=== PATIENT | female | born 1955 | race Caucasian/White ===

== ENCOUNTER 2018-06-06 16:13 | Inpatient (IN) | payer OTHER ==
[~2018-06-06] VITALS: Ht 157.5 cm; Wt 101.4 kg
[2018-06-06 17:05] LABS: BASOPHILS 0.1 % (0-2); EOSINOPHILS 0.2 % (0-7); HEMATOCRIT 44.7 % (36.0-48.0); HEMOGLOBIN 13.6 g/dL (12-16); IMMATURE GRANULOCYTES 2.2 % (0-5); LYMPHOCYTES 10.3 % (15-50); MCH 29.4 pg (26.0-34.0); MCHC 30.4 g/dL (31.0-37.0); MCV 96.5 fL (80.0-100.0); MEAN PLATELET VOLUME 11.5 fL (7.4-10.4); MONOCYTES 8.4 % (2-11); NEUTROPHILS 78.8 % (40-80); PLATELET COUNT 159 10x3/uL (130-400); RBC 4.63 10x6/uL (4.00-5.40); WBC 12.1 10x3/uL (4.8-10.8)
[2018-06-06 17:25] LABS: ALBUMIN 3.2 g/dL (3.4-5.0); ALKALINE PHOSPHATASE 63 U/L (46-116); ALT (SGPT) 29 U/L (10-68); BILIRUBIN - TOTAL 0.42 mg/dL (0.2-1.3); CALC OSMOLALITY 289 mosm/kg (275-300); CALCIUM 9.1 mg/dL (8.5-10.1); CHLORIDE - SERUM 98 mmol/L (98-107); CREATININE - SERUM 0.8 mg/dL (0.6-1.3); GLUCOSE 167 mg/dL (74-106); POTASSIUM - SERUM 3.7 mmol/L (3.5-5.1); PROTEIN - SERUM 6.9 g/dL (6.4-8.2); SODIUM 142 mmol/L (136-145); UREA NITROGEN 20 mg/dL (7-18); eGFR NON AFRICAN AMERICAN 77 mL/min (90-120)
[2018-06-06 17:33] LABS: CARBON DIOXIDE 45.3 mmol/L (21.0-32.0)
--- NOTE | 2018-06-06 17:37 | NUR ---
CO2 45.3
--- NOTE | 2018-06-06 19:29 | NUR ---
REPORT CALLED TO CARMELO ANDRADE
--- NOTE | 2018-06-06 19:32 | MORECARE ---
CASE MANAGEMENT DISCHARGE SUMMARY PATIENT: HÉCTOR SANTIZO UNIT: [id number] ADM DATE: 06/06/18 AGE: 63 : 55 SEX: F ROOM/BED: D.2107 AUTHOR: ALEXANDRA YATES PHYSICIAN: REFERRING PHYSICIAN: BRAD ARMSTRONG MD DATE OF SERVICE: 06/06/18 Discharge Plan Patient Name: HÉCTOR SANTIZO Facility: [facility]:[place] : 1955 Planned Disposition: Anticipated Discharge Date: Discharge Date: Expected LOS: Initial Reviewer: [id number] Initial Review Date: 06/06/2018 Generated: 06/06/18 8:31 pm Patient Name: HÉCTOR SANTIZO Page [id number] at 1932 All edits/amendments must be made on the electronic document DICTATION DATE: 06/06/181930 SAW STRAIGHTENER: ANTHONY 06/06/181930 RPT#: [id number] DC DATE: STATUS: ADM IN [facility] [address] [place] [address] END OF REPORT
--- NOTE | 2018-06-06 20:34 | NUR ---
INTRODUCED SELF TO PATIENT, PATIENT DAUGHTER AT BEDSIDE ON THE PHONE. ASSISTED PATIENT TO BATHROOM. NO NEEDS AT THIS TIME.
[2018-06-07 00:17] VITALS: BP 131/81; BMI 41.1
--- NOTE | 2018-06-07 02:00 | NUR ---
MULTIPLE ATTEMPTS MADE TO PUT PT ON TRILOGY UNIT. PT HAS MANY REASON WHY SHE CANT PUT IT ON AT EACH ATTEMPT. HAS TO EAT, WAITING FOR NEW IV, NEEDS TO GO TO [facility]. PROMISES TO PUT ON BEFORE SLEEP.
[2018-06-07] MEDS ORDERED: EZFE 200200 MG PO (02:22)
[2018-06-07] MEDS ORDERED: KEPPRA500 MG PO (02:23)
[2018-06-07] MEDS ORDERED: LEVOFLOXACIN500 MG PO (02:23)
[2018-06-07] MEDS ORDERED: METOPROLOL TART50 MG PO (02:24)
[2018-06-07] MEDS ORDERED: GLUCOPHAGE500 MG PO (02:24)
[2018-06-07] MEDS ORDERED: MUCINEX DM ER1 EAC1 PO (02:25)
[2018-06-07] MEDS ORDERED: ELIQUIS5 MG PO (02:27)
[2018-06-07] MEDS ORDERED: ALBUTEROL SULF8.5 GM INH (02:27)
[2018-06-07] MEDS ORDERED: COLACE100 MG PO (02:28)
[2018-06-07] MEDS ORDERED: CARDIZEM CD240 MG PO (02:28)
[2018-06-07] MEDS ORDERED: FENOFIBRATE160 MG PO (02:28)
[2018-06-07] MEDS ORDERED: GLIPIZIDE10 MG PO (02:29)
[2018-06-07] MEDS ORDERED: NEURONTIN 300300 MG PO (02:29)
[2018-06-07] MEDS ORDERED: LASIX40 MG PO (02:29)
[2018-06-07] MEDS ORDERED: K-DUR20 MEQ PO (02:30)
[2018-06-07] MEDS ORDERED: OMEPRAZOLE20 M1 PO (02:30)
[2018-06-07] MEDS ORDERED: MIRAPEX0.25 MG PO (02:31)
[2018-06-07] MEDS ORDERED: STERAPRED DS 1210 MG PO (02:32)
--- NOTE | 2018-06-07 02:42 | NUR ---
PATIENT LEFT AC IV INFILTRATED, THIS NURSE ATTEMPTED 2X, CHARGE NURSE ATTEMPTED 2X, ICU NURSE ATTEMPTED 2X. CALLED ED, AWAITING FOR ED NURSE TO ATTEMPT IV START.
[2018-06-07 04:54] LABS: BASOPHILS 0.1 % (0-2); EOSINOPHILS 0.9 % (0-7); HEMATOCRIT 44.4 % (36.0-48.0); HEMOGLOBIN 13.4 g/dL (12-16); IMMATURE GRANULOCYTES 2.2 % (0-5); LYMPHOCYTES 21.9 % (15-50); MCH 29.3 pg (26.0-34.0); MCHC 30.2 g/dL (31.0-37.0); MCV 96.9 fL (80.0-100.0); MEAN PLATELET VOLUME 10.8 fL (7.4-10.4); MONOCYTES 9.9 % (2-11); PLATELET COUNT 147 10x3/uL (130-400); RBC 4.58 10x6/uL (4.00-5.40); WBC 10.9 10x3/uL (4.8-10.8)
[2018-06-07 05:15] LABS: ALBUMIN 3.1 g/dL (3.4-5.0); ALKALINE PHOSPHATASE 58 U/L (46-116); ALT (SGPT) 27 U/L (10-68); BILIRUBIN - TOTAL 0.43 mg/dL (0.2-1.3); CALCIUM 9.1 mg/dL (8.5-10.1); CHLORIDE - SERUM 98 mmol/L (98-107); CREATININE - SERUM 0.7 mg/dL (0.6-1.3); MAGNESIUM - SERUM 1.9 mg/dL (1.8-2.4); POTASSIUM - SERUM 3.5 mmol/L (3.5-5.1); PROTEIN - SERUM 6.7 g/dL (6.4-8.2); SODIUM 142 mmol/L (136-145); UREA NITROGEN 17 mg/dL (7-18); eGFR NON AFRICAN AMERICAN 90 mL/min (90-120)
[2018-06-07 05:19] LABS: CALC OSMOLALITY 285 mosm/kg (275-300); CARBON DIOXIDE 45.8 mmol/L (21.0-32.0); GLUCOSE 116 mg/dL (74-106)
--- NOTE | 2018-06-07 08:01 | NUR ---
RESUMING PT CARE, PT SITTING UP IN BED ALERT AND ORIENTED X3, CALL LIGHT IN REACH, WILL CONTINUE TO MONITOR AND FOLLOW PLAN OF CARE. PT DOES NOT HAVE AN IV AT THIS TIME, FOOT PRESS OPERATOR REPORTS THAT THEY TRIED SEVERAL TIMES TO START A NEW IV. WILL CONTACT VENOUS ACCESS NURSE TO ATTEMPT.
--- NOTE | 2018-06-07 09:49 | NUR ---
URINE SENT TO LAB ORDERED.
[2018-06-07 10:47] VITALS: BMI 41.1
[2018-06-07 12:24] VITALS: Ht 157.5 cm; Wt 101.4 kg
--- NOTE | 2018-06-07 15:14 | NUR ---
I have reviewed this patient and I concur with the Shift Assessment completed by the Licensed Practical Nurse today this shift.
--- NOTE | 2018-06-07 19:50 | NUR ---
RESUMING PT CARE. PT IS ALERT LAYING IN BED. NO C/O VOCIED. NO S/S OF DISTRESS. PT HAS A IV IN THE RIGHT WRIST AND IS ON 2 LITERS OF OXYGEN. BED IN LOW POSITION WITH CALL LIGHT IN REACH. WILL CONTINUE TO MONITOR PT AND FOLLOW PLAN OF CARE.
[2018-06-08 03:45] LABS: BASOPHILS 0.1 % (0-2); EOSINOPHILS 1.4 % (0-7); HEMATOCRIT 44.9 % (36.0-48.0); HEMOGLOBIN 13.6 g/dL (12-16); LYMPHOCYTES 17.2 % (15-50); MCH 29.1 pg (26.0-34.0); MCHC 30.3 g/dL (31.0-37.0); MCV 96.1 fL (80.0-100.0); MEAN PLATELET VOLUME 10.9 fL (7.4-10.4); NEUTROPHILS 71.3 % (40-80); PLATELET COUNT 139 10x3/uL (130-400); RBC 4.67 10x6/uL (4.00-5.40); RDW 15.3 % (11.5-14.5); WBC 13.1 10x3/uL (4.8-10.8)
[2018-06-08 03:59] LABS: ALBUMIN 2.9 g/dL (3.4-5.0); ALKALINE PHOSPHATASE 59 U/L (46-116); ALT (SGPT) 24 U/L (10-68); BILIRUBIN - TOTAL 0.51 mg/dL (0.2-1.3); CALC OSMOLALITY 283 mosm/kg (275-300); CARBON DIOXIDE 39.9 mmol/L (21.0-32.0); CHLORIDE - SERUM 99 mmol/L (98-107); CREATININE - SERUM 0.7 mg/dL (0.6-1.3); GLUCOSE 150 mg/dL (74-106); MAGNESIUM - SERUM 1.9 mg/dL (1.8-2.4); PROTEIN - SERUM 6.5 g/dL (6.4-8.2); SODIUM 141 mmol/L (136-145); eGFR NON AFRICAN AMERICAN 90 mL/min (90-120)
[2018-06-08 04:00] LABS: UREA NITROGEN 12 mg/dL (7-18)
--- NOTE | 2018-06-08 04:14 | NUR ---
I have reviewed this patient and I concur with the Shift Assessment completed by the Licensed Practical Nurse today this shift.
--- NOTE | 2018-06-08 05:06 | NUR ---
PT ALERT SITTING ON THE SIDE OF BED DRINKING COFFEE. NO C/O VOICED. NO S/S OF DISTRESS. BED IN LOW POSITION WITH CALL LIGHT IN REACH. WILL CONTINUE TO MONITOR PT AND FOLLOW PLAN OF CARE.
--- NOTE | 2018-06-08 07:20 | NUR ---
RESUMING PT CARE, PT IS SITTING UP IN BED, ALERT AND ORIENTED X3. CALL LIGHT IN REACH, WILL CONTINUE TO MONITOR AND FOLLOW PLAN OF CARE.
--- NOTE | 2018-06-08 11:47 | NUR ---
I have reviewed this patient and I concur with the Shift Assessment completed by the Licensed Practical Nurse today this shift.
--- NOTE | 2018-06-08 12:14 | MORECARE ---
CASE MANAGEMENT DISCHARGE SUMMARY PATIENT: HÉCTOR SANTIZO UNIT: [id number] ADM DATE: 06/06/18 AGE: 63 : 55 SEX: F ROOM/BED: D.2107 AUTHOR: ALEXANDRA YATES PHYSICIAN: REFERRING PHYSICIAN: BRAD ARMSTRONG MD DATE OF SERVICE: 06/08/18 Discharge Plan Patient Name: HÉCTOR SANTIZO [facility] : 1955 Planned Disposition: Home Anticipated Discharge Date: 06/09/18 Discharge Date: Expected LOS: 3 Initial Reviewer: [id number] Initial Review Date: 06/06/2018 Generated: 06/08/18 1:14 pm External Providers External Provider: Josephine Next Contact Date: 06/08/2018 Service Request Date: Service Type: Resolution: Reviewer: Comments: Coverage Notice Reviewer: [id number] Rodriguez Notice Issued Date-Time: 06/08/2018 10:50 Notice Type: IM Discharge Notice Notice Delivered To: Patient Relationship to Patient: Fisher Trap Name: Delivery Method: HAND - Hand Delivered Evie Days: Prior Verbal Notification: Recipient Understood Notice: Yes Recipient Signature: Yes Med Rec Note Co-signed by Attending: Coverage Notice Comment: Reviewer: JEREMIAH Rodriguez Notice Issued Date-Time: 06/08/2018 10:50 Notice Type: Patient Choice Letter Notice Delivered To: Patient Relationship to Patient: Fisher Trap Name: Delivery Method: HAND - Hand Delivered Evie Days: Prior Verbal Notification: Recipient Understood Notice: Yes Recipient Signature: Yes Med Rec Note Co-signed by Attending: Coverage Notice Comment: SAJAN Guerrero DP export: 06/06/18 6:31 p Patient Name: HÉCTOR SANTIZO Page 18103 at 1214 All edits/amendments must be made on the electronic document DICTATION DATE: 06/08/18 1213 HEARING OFFICER: ANTHONY 06/08/183 RPT#: [id number] DC DATE: STATUS: ADM IN [address] [place] [address] END OF REPORT
--- NOTE | 2018-06-08 12:23 | MORECARE ---
CASE MANAGEMENT DISCHARGE SUMMARY PATIENT: HÉCTOR SANTIZO UNIT: [id number] ADM DATE: 06/06/18 AGE: 63 : 55 SEX: F ROOM/BED: D.2107 AUTHOR: TRUDYDOC PHYSICIAN: REFERRING PHYSICIAN: BRAD ARMSTRONG MD DATE OF SERVICE: 06/08/18 Discharge Plan Patient Name: HÉCTOR SANTIZO Facility: [facility]:[place] : 1955 Planned Disposition: Home Anticipated Discharge Date: 06/09/18 Discharge Date: Expected LOS: 3 Initial Reviewer: [id number] Initial Review Date: 06/06/2018 Generated: 06/08/18 1:23 pm DCPIA - Discharge Planning Initial Assessment Updated by JEREMIAH: Porter Rodriguez on 06/08/18 12:17 pm * Is the patient Alert and Oriented? Yes * How many steps to enter\exit or inside your home? NONE * PCP DR. GRECO * Pharmacy [facility] IN [place] * Preadmission Environment Home with Family * ADLs Partial Dependent * Partial ADLs (Assistance needed) Medication Management * Equipment Bedside Commode Nebulizer Other Oxygen * Other Equipment HOME AND PORTABLE OXYGEN TRILOGY MACHINE [facility] [place], MEDICAL EQUIPMENT PROVIDER * List name and contact numbers for known caregivers / representatives who currently or will assist patient after discharge: ABDIAS NAVARRO, DTR, [phone] ORAL GAY, DTR, * Verbal permission to speak to the caregivers and representatives has been obtained from the patient. N/A * Community resources currently utilized None * Please name any agencies selected above. NONE * Additional services required to return to the preadmission environment? No * Can the patient safely return to the preadmission environment? Yes * Has this patient been hospitalized within the prior 30 days at any hospital? Yes Coverage Notice Reviewer: [id number] Rodriguez Notice Issued Date-Time: 06/08/2018 10:50 Notice Type: IM Discharge Notice Notice Delivered To: Patient Relationship to Patient: Occupancy Specialist Name: Delivery Method: HAND - Hand Delivered Evie Days: Prior Verbal Notification: Recipient Understood Notice: Yes Recipient Signature: Yes Med Rec Note Co-signed by Attending: Coverage Notice Comment: Reviewer: JEREMIAH Rodriguez Notice Issued Date-Time: 06/08/2018 10:50 Notice Type: Patient Choice Letter Notice Delivered To: Patient Relationship to Patient: Occupancy Specialist Name: Delivery Method: HAND - Hand Delivered Evie Days: Prior Verbal Notification: Recipient Understood Notice: Yes Recipient Signature: Yes Med Rec Note Co-signed by Attending: Coverage Notice Comment: HILLARYNEFTALI Cesar DP export: 06/08/18 11:14 a Patient Name: HÉCTOR SANTIZO Page 97300 at 1223 All edits/amendments must be made on the electronic document DICTATION DATE: 06/08/18 1223 SECURITY OPERATIONS CENTER ANALYST: ANTHONY 06/08/18 1223 RPT#: [id number] DC DATE: STATUS: ADM IN [facility] [address] [place] [address] END OF REPORT
--- NOTE | 2018-06-08 12:36 | NUR ---
Diabetic 2gm Na diet continues. Pt ate 100% of breakfast and lunch today. Pt sleeping now. Pt has Glucerna ordered on tray Will encourage good BG control and educate pt on nutrition needs. Pt does not need Glucerna BG 357, [address] following
--- NOTE | 2018-06-08 12:49 | MORECARE ---
CASE MANAGEMENT DISCHARGE SUMMARY PATIENT: HÉCTOR SANTIZO UNIT: [id number] ADM DATE: 06/06/18 AGE: 63 : 55 SEX: F ROOM/BED: D.5846 AUTHOR: ALEXANDRA YATES PHYSICIAN: REFERRING PHYSICIAN: BRAD ARMSTRONG MD DATE OF SERVICE: 06/08/18 Discharge Plan Patient Name: HÉCTOR SANTIZO Facility: [facility]:[place] : 1955 Planned Disposition: Home Anticipated Discharge Date: 06/09/18 Discharge Date: Expected LOS: 3 Initial Reviewer: [id number] Initial Review Date: 06/06/2018 Generated: 06/08/18 1:49 pm Comments DCP- Discharge Planning Updated by [email or web address]: Porter Rodriguez on 06/08/18 11:[address] Patient Name: HÉCTOR SANTIZO Admission Status: ER Accout number: [id number] Admission Date: 06-06-2018 : 1955 Admission Diagnosis: Attending: BRAD ARMSTRONG Current LOS: 2 Anticipated DC Date: 06-09-2018 Planned Disposition: Home Primary Insurance: [employer] Discharge Planning Comments: CM SPOKE TO DR. LOPEZ WHO ASKED CM TO GET EVERYTHING ARRANGED FOR PT TO DISCHARGE HOME SOON. PT MAY NEED NEBULIZER PER DR. OLPEZ. CM MET WITH PT IN ROOM TO DISCUSS DISCHARGE PLANNING AND NEEDS. PT REPORTS LIVING AT HOME INDEPENDENLY WITH HER ADULT DAUGHTER WHO ASSISTS WITH ARRANGING PT'S MEDICATIONS. PT HAS BEDSIDE COMMODE, HOME AND PORTABLE OXYGEN, TRILOGY MACHINE WELL A VERY OLD NEBULIZER THAT PT REPORTS TO BE WORKING BUT SHE IS AFRAID IT COULD QUIT AT ANY TIME. PT'S MEDICAL EQUIPMENT PROVIDER IS [facility], PT IS NOT SURE WHICH OFFICE IT IS. PT HAS NO OUTSIDE SERVICES ASSISTING IN THE HOME. CM DISCUSSED AVAILABILITY OF HOME HEALTH, REHAB SERVICES AND MEDICAL EQUIPMENT. PT DENIES DISCHARGE NEEDS OTHER THAN NEEDING A NEW NEBULIZER. PT REPORTS HER DAUGHTER WILL PICK HER UP FOR DISCHARGE HOME. IMPORTANT MESSAGE FROM MEDICARE PROVIDED AND EXPLAINED. PROVIDER LISTING FOR MEDICAL EQUIPMENT PROVIDED, PT SIGNED CHOICE FOR [facility]. CM CALLED [facility]JAN IN [facility], , , SPOKE TO STACI WHO TOOK NEBULIZER ORDER. CM FAXED NEBULIZER ORDER TO SAJAN AT [phone]. SAJAN TO ARRANGE NEBULIZER FOR HOME DELIVERY AFTER PT ARRIVES HOME. PT NOTIFIED WHO DENIES FURTHER DISCHARGE NEEDS. CM TO FOLLOW AND ASSIST IF NEEDED. Contract Preparer: Porter Rodriguez DCPIA - Discharge Planning Initial Assessment Updated by [email or web address]: Porter Rodriguez on 06/08/18 12:17 pm * Is the patient Alert and Oriented? Yes * How many steps to enter\exit or inside your home? NONE * PCP DR. GRECO * Pharmacy [facility] IN [place] * Preadmission Environment Home with Family * ADLs Partial Dependent * Partial ADLs (Assistance needed) Medication Management * Equipment Bedside Commode Nebulizer Other Oxygen * Other Equipment HOME AND PORTABLE OXYGEN TRILOGY MACHINE [facility], MEDICAL EQUIPMENT PROVIDER * List name and contact numbers for known caregivers / representatives who currently or will assist patient after discharge: ABDIAS NAVARRO, DTR, [phone] ORAL GAY, DTR, * Verbal permission to speak to the caregivers and representatives has been obtained from the patient. N/A * Community resources currently utilized None * Please name any agencies selected above. NONE * Additional services required to return to the preadmission environment? No * Can the patient safely return to the preadmission environment? Yes * Has this patient been hospitalized within the prior 30 days at any hospital? Yes Coverage Notice Reviewer: [id number] Funmi Rodriguez Notice Issued Date-Time: 06/08/2018 10:50 Notice Type: IM Discharge Notice Notice Delivered To: Patient Relationship to Patient: Graffiti Cleaner Name: Delivery Method: HAND - Hand Delivered Evie Days: Prior Verbal Notification: Recipient Understood Notice: Yes Recipient Signature: Yes Med Rec Note Co-signed by Attending: Coverage Notice Comment: Reviewer: [email or web address] Funmi Rodriguez Notice Issued Date-Time: 06/08/2018 10:50 Notice Type: Patient Choice Letter Notice Delivered To: Patient Relationship to Patient: Graffiti Cleaner Name: Delivery Method: HAND - Hand Delivered Evie Days: Prior Verbal Notification: Recipient Understood Notice: Yes Recipient Signature: Yes Med Rec Note Co-signed by Attending: Coverage Notice Comment: HILLARYNEFTALI Last DP export: 06/08/18 11:23 a Patient Name: HÉCTOR SANTIZO Page [id number] at 1249 All edits/amendments must be made on the electronic document DICTATION DATE: 06/08/181248 ELECTRICIAN HELPER POWERHOUSE: ANTHONY 06/08/181248 RPT#: [id number] DC DATE: STATUS: ADM IN [facility] [address] [place] [address] END OF REPORT
--- NOTE | 2018-06-08 13:37 | MORECARE ---
CASE MANAGEMENT DISCHARGE SUMMARY PATIENT: HÉCTOR SANTIZO UNIT: [id number] ADM DATE: 06/06/18 AGE: 63 : 55 SEX: F ROOM/BED: D.1396 AUTHOR: ALEXANDRA YATES PHYSICIAN: REFERRING PHYSICIAN: BRAD ARMSTRONG MD DATE OF SERVICE: 06/08/18 Discharge Plan Patient Name: HÉCTOR SANTIZO Facility: [facility]:[place] : 1955 Planned Disposition: Home Anticipated Discharge Date: 06/09/18 Discharge Date: Expected LOS: 3 Initial Reviewer: [id number] Initial Review Date: 06/06/2018 Generated: 06/08/18 2:37 pm Comments DCP- Discharge Planning Updated by [email or web address]: Porter Rodriguez on 06/08/18 11:[address] Patient Name: HÉCTOR SANTIZO Admission Status: ER Accout number: [id number] Admission Date: 06-06-2018 : 1955 Admission Diagnosis: Attending: BRAD ARMSTRONG Current LOS: 2 Anticipated DC Date: 06-09-2018 Planned Disposition: Home Primary Insurance: [employer] Discharge Planning Comments: CM SPOKE TO DR. LOPEZ WHO ASKED CM TO GET EVERYTHING ARRANGED FOR PT TO DISCHARGE HOME SOON. PT MAY NEED NEBULIZER PER DR. LOPEZ. CM MET WITH PT IN ROOM TO DISCUSS DISCHARGE PLANNING AND NEEDS. PT REPORTS LIVING AT HOME INDEPENDENLY WITH HER ADULT DAUGHTER WHO ASSISTS WITH ARRANGING PT'S MEDICATIONS. PT HAS BEDSIDE COMMODE, HOME AND PORTABLE OXYGEN, TRILOGY MACHINE WELL A VERY OLD NEBULIZER THAT PT REPORTS TO BE WORKING BUT SHE IS AFRAID IT COULD QUIT AT ANY TIME. PT'S MEDICAL EQUIPMENT PROVIDER IS [facility], PT IS NOT SURE WHICH OFFICE IT IS. PT HAS NO OUTSIDE SERVICES ASSISTING IN THE HOME. CM DISCUSSED AVAILABILITY OF HOME HEALTH, REHAB SERVICES AND MEDICAL EQUIPMENT. PT DENIES DISCHARGE NEEDS OTHER THAN NEEDING A NEW NEBULIZER. PT REPORTS HER DAUGHTER WILL PICK HER UP FOR DISCHARGE HOME. IMPORTANT MESSAGE FROM MEDICARE PROVIDED AND EXPLAINED. PROVIDER LISTING FOR MEDICAL EQUIPMENT PROVIDED, PT SIGNED CHOICE FOR [facility]. CM CALLED [facility] IN [facility], , , SPOKE TO STACI WHO TOOK NEBULIZER ORDER. CM FAXED NEBULIZER ORDER TO SAJAN AT [phone]. SAJAN TO ARRANGE NEBULIZER FOR HOME DELIVERY AFTER PT ARRIVES HOME. PT NOTIFIED WHO DENIES FURTHER DISCHARGE NEEDS. CM TO FOLLOW AND ASSIST IF NEEDED. Tax Staff Accountant: Porter Rodriguez DCPIA - Discharge Planning Initial Assessment Updated by JEREMIAH: Porter Rodriguez on 06/08/18 12:17 pm * Is the patient Alert and Oriented? Yes * How many steps to enter\exit or inside your home? NONE * PCP DR. GRECO * Pharmacy [facility] [place] * Preadmission Environment Home with Family * ADLs Partial Dependent * Partial ADLs (Assistance needed) Medication Management * Equipment Bedside Commode Nebulizer Other Oxygen * Other Equipment HOME AND PORTABLE OXYGEN TRILOGY MACHINE [facility], MEDICAL EQUIPMENT PROVIDER * List name and contact numbers for known caregivers / representatives who currently or will assist patient after discharge: ABDIAS NAVARRO, DTR, [phone] ORAL GAY, DTR, * Verbal permission to speak to the caregivers and representatives has been obtained from the patient. N/A * Community resources currently utilized None * Please name any agencies selected above. NONE * Additional services required to return to the preadmission environment? No * Can the patient safely return to the preadmission environment? Yes * Has this patient been hospitalized within the prior 30 days at any hospital? Yes External Providers External Provider: Josephine Next Contact Date: 06/08/2018 Service Request Date: Service Type: Resolution: Reviewer: Comments: Coverage Notice Reviewer: [id number] Funmi Rodriguez Notice Issued Date-Time: 06/08/2018 10:50 Notice Type: IM Discharge Notice Notice Delivered To: Patient Relationship to Patient: Safety Engineer Name: Delivery Method: HAND - Hand Delivered Evie Days: Prior Verbal Notification: Recipient Understood Notice: Yes Recipient Signature: Yes Med Rec Note Co-signed by Attending: Coverage Notice Comment: Reviewer: [id number] Funmi Rodriguez Notice Issued Date-Time: 06/08/2018 10:50 Notice Type: Patient Choice Letter Notice Delivered To: Patient Relationship to Patient: Safety Engineer Name: Delivery Method: HAND - Hand Delivered Evie Days: Prior Verbal Notification: Recipient Understood Notice: Yes Recipient Signature: Yes Med Rec Note Co-signed by Attending: Coverage Notice Comment: SAJAN Last DP export: 06/08/18 11:49 a Patient Name: HÉCTOR SANTIZO Page [phone] at 1337 All edits/amendments must be made on the electronic document DICTATION DATE: 06/08/181336 TRUCK DRIVER FLATBED: ANTHONY 06/08/181336 RPT#: [id number] DC DATE: STATUS: ADM IN [facility] [address] [place] [address] END OF REPORT
--- NOTE | 2018-06-08 17:00 | MORECARE ---
CASE MANAGEMENT DISCHARGE SUMMARY PATIENT: HÉCTOR SANTIZO UNIT: [id number] ADM DATE: 06/06/18 AGE: 63 : 55 SEX: F ROOM/BED: D.3765 AUTHOR: ALEXANDRA YATES PHYSICIAN: REFERRING PHYSICIAN: BRAD ARMSTRONG MD DATE OF SERVICE: 06/08/18 Discharge Plan Patient Name: HÉCTOR SANTIZO Facility: [facility]:[place] : 1955 Planned Disposition: Home Anticipated Discharge Date: 06/09/18 Discharge Date: Expected LOS: 3 Initial Reviewer: [id number] Initial Review Date: 06/06/2018 Generated: 06/08/18 6:00 pm Comments DCP- Discharge Planning Updated by [email or web address]: Porter Rodriguez on 06/08/18 11:[address] Patient Name: HÉCTOR SANTIZO Admission Status: ER Accout number: [id number] Admission Date: 06-06-2018 : 1955 Admission Diagnosis: Attending: BRAD ARMSTRONG Current LOS: 2 Anticipated DC Date: 06-09-2018 Planned Disposition: Home Primary Insurance: [employer] Discharge Planning Comments: CM SPOKE TO DR. LOPEZ WHO ASKED CM TO GET EVERYTHING ARRANGED FOR PT TO DISCHARGE HOME SOON. PT MAY NEED NEBULIZER PER DR. LOPEZ. CM MET WITH PT IN ROOM TO DISCUSS DISCHARGE PLANNING AND NEEDS. PT REPORTS LIVING AT HOME INDEPENDENLY WITH HER ADULT DAUGHTER WHO ASSISTS WITH ARRANGING PT'S MEDICATIONS. PT HAS BEDSIDE COMMODE, HOME AND PORTABLE OXYGEN, TRILOGY MACHINE WELL A VERY OLD NEBULIZER THAT PT REPORTS TO BE WORKING BUT SHE IS AFRAID IT COULD QUIT AT ANY TIME. PT'S MEDICAL EQUIPMENT PROVIDER IS [facility], PT IS NOT SURE WHICH OFFICE IT IS. PT HAS NO OUTSIDE SERVICES ASSISTING IN THE HOME. CM DISCUSSED AVAILABILITY OF HOME HEALTH, REHAB SERVICES AND MEDICAL EQUIPMENT. PT DENIES DISCHARGE NEEDS OTHER THAN NEEDING A NEW NEBULIZER. PT REPORTS HER DAUGHTER WILL PICK HER UP FOR DISCHARGE HOME. IMPORTANT MESSAGE FROM MEDICARE PROVIDED AND EXPLAINED. PROVIDER LISTING FOR MEDICAL EQUIPMENT PROVIDED, PT SIGNED CHOICE FOR [facility]. CM CALLED [facility]JAN IN [facility], , , SPOKE TO STACI WHO TOOK NEBULIZER ORDER. CM FAXED NEBULIZER ORDER TO SAJAN AT [phone]. SAJAN TO ARRANGE NEBULIZER FOR HOME DELIVERY AFTER PT ARRIVES HOME. PT NOTIFIED WHO DENIES FURTHER DISCHARGE NEEDS. CM TO FOLLOW AND ASSIST IF NEEDED. Rn Patient Care: Porter Rodriguez DCPIA - Discharge Planning Initial Assessment Updated by [email or web address]: Porter Rodriguez on 06/08/18 12:17 pm * Is the patient Alert and Oriented? Yes * How many steps to enter\exit or inside your home? NONE * PCP DR. GRECO * Pharmacy [facility] IN [place] * Preadmission Environment Home with Family * ADLs Partial Dependent * Partial ADLs (Assistance needed) Medication Management * Equipment Bedside Commode Nebulizer Other Oxygen * Other Equipment HOME AND PORTABLE OXYGEN TRILOGY MACHINE [facility], MEDICAL EQUIPMENT PROVIDER * List name and contact numbers for known caregivers / representatives who currently or will assist patient after discharge: ABDIAS NAVARRO, DTR, [phone] ORAL GAY, DTR, * Verbal permission to speak to the caregivers and representatives has been obtained from the patient. N/A * Community resources currently utilized None * Please name any agencies selected above. NONE * Additional services required to return to the preadmission environment? No * Can the patient safely return to the preadmission environment? Yes * Has this patient been hospitalized within the prior 30 days at any hospital? Yes Coverage Notice Reviewer: [id number] Funmi Rodriguez Notice Issued Date-Time: 06/08/2018 10:50 Notice Type: IM Discharge Notice Notice Delivered To: Patient Relationship to Patient: Laborer Tree Tapping Name: Delivery Method: HAND - Hand Delivered Evie Days: Prior Verbal Notification: Recipient Understood Notice: Yes Recipient Signature: Yes Med Rec Note Co-signed by Attending: Coverage Notice Comment: Reviewer: [id number] Funmi Rodriguez Notice Issued Date-Time: 06/08/2018 10:50 Notice Type: Patient Choice Letter Notice Delivered To: Patient Relationship to Patient: Laborer Tree Tapping Name: Delivery Method: HAND - Hand Delivered Evie Days: Prior Verbal Notification: Recipient Understood Notice: Yes Recipient Signature: Yes Med Rec Note Co-signed by Attending: Coverage Notice Comment: HILLARYNEFTALI Last DP export: 06/08/18 12:37 p Patient Name: HÉCTOR SANTIZO Page [phone] at 1700 All edits/amendments must be made on the electronic document DICTATION DATE: 06/08/181699 NURSERY RN: ANTHONY 06/08/181699 RPT#: [id number] DC DATE: STATUS: ADM IN [facility] [address] [place] [address] END OF REPORT
--- NOTE | 2018-06-08 19:20 | NUR ---
ALERT/AWAKE ORIENTED X4. RR 18 EVEN U/L ON 02 AT 5L/NC. TELEMETRY SHOWS 86 CAFIB. DENIES PAIN OR ANY NEEDS. HAS CALL LIGHT IN REACH.
--- NOTE | 2018-06-08 21:40 | NUR ---
ADMIN SCHED PO MEDS WITH SIPS OF WATER SWALLOWING WITHOUT DIFFICULTY. CHECKED BS AT 228, ADMIN HUMULIN R 4 UNITS.
--- NOTE | 2018-06-08 22:15 | NUR ---
ASSISTED TO BATHROOM TO VOID. REQUESTED ASSISTANCE WITH PUTTING ON HER HOME BIPAP.
--- NOTE | 2018-06-09 04:00 | NUR ---
RESTING QUIETLY WITH EYES CLOSED. BIPAP MASK ON. NO S/S OF DISCOMFORT. FAMILY MEMBER SLEEPING IN RECLINER.
[2018-06-09 04:33] LABS: BASOPHILS 0.1 % (0-2); EOSINOPHILS 1.7 % (0-7); HEMATOCRIT 43.6 % (36.0-48.0); HEMOGLOBIN 12.8 g/dL (12-16); IMMATURE GRANULOCYTES 1.7 % (0-5); LYMPHOCYTES 15.2 % (15-50); MCH 28.9 pg (26.0-34.0); MCHC 29.4 g/dL (31.0-37.0); MEAN PLATELET VOLUME 11.1 fL (7.4-10.4); MONOCYTES 7.5 % (2-11); NEUTROPHILS 73.8 % (40-80); PLATELET COUNT 146 10x3/uL (130-400); RBC 4.43 10x6/uL (4.00-5.40); RDW 15.4 % (11.5-14.5); WBC 12.6 10x3/uL (4.8-10.8)
[2018-06-09 04:42] LABS: MCV 98.4 fL (80.0-100.0)
[2018-06-09 04:53] LABS: ALBUMIN 2.8 g/dL (3.4-5.0); ALKALINE PHOSPHATASE 50 U/L (46-116); ALT (SGPT) 20 U/L (10-68); BILIRUBIN - TOTAL 0.31 mg/dL (0.2-1.3); CALC OSMOLALITY 285 mosm/kg (275-300); CALCIUM 8.7 mg/dL (8.5-10.1); CHLORIDE - SERUM 101 mmol/L (98-107); CREATININE - SERUM 0.6 mg/dL (0.6-1.3); GLUCOSE 177 mg/dL (74-106); MAGNESIUM - SERUM 1.9 mg/dL (1.8-2.4); POTASSIUM - SERUM 4.2 mmol/L (3.5-5.1); PROTEIN - SERUM 6.1 g/dL (6.4-8.2); SODIUM 142 mmol/L (136-145); UREA NITROGEN 10 mg/dL (7-18); eGFR NON AFRICAN AMERICAN > 90 mL/min (90-120)
[2018-06-09 04:57] LABS: CARBON DIOXIDE 42.1 mmol/L (21.0-32.0)
--- NOTE | 2018-06-09 05:00 | NUR ---
SITTING UP IN BED LEANING OVER BEDSIDE TABLE. STATED SHE FELT OK, THAT IT FELT GOOD TO LEAN OVER THE TABLE. NO NEEDS VOICED.
--- NOTE | 2018-06-09 08:54 | NUR ---
AM MEDS GIVEN AT THIS TIME, PT STILL REFUSING TO HAVE IV STARTED. WANTS TO WAIT UNTIL DOCTOR ROUNDS TO TALK TO HIM ABOUT IV. INFORMED PT THAT SHE COULD GET A CENTRAL LINE PLACED BY A SURGERY AND THAT WAY SHE COULD GET HER ANTIBIOTICS, STEROIDS AND LASIX. IT WOULD ALSO HELP WITH BLOOD DRAWS, PT STATED " I AM TIRED OF GETTING STUCK AND I DONT WANT TO BE STUCK ANYMORE. I JUST WANT TO WAIT AND SEE WHAT THE DOCTOR SAYS, IF THEY HAVE TO GIVE ME A DOUBLE DOSE OF ANTIBIOTICS BY MOUTH THATS FINE. BUT I JUST DONT WANT TO GET STUCK AGAIN". PT DENIES ANY NEEDS AT THIS TIME. CALL LIGHT IN REACH, NAD NOTED,W ILL CONTINUE TO MONITOR.
--- NOTE | 2018-06-09 09:38 | NUR ---
PT AMBULATING WITH PHYSICAL THERAPY AROUND THE UNIT. STEADY GATE WITH WALKER.
[2018-06-09 11:23] VITALS: BP 135/85
--- NOTE | 2018-06-09 11:54 | NUR ---
BLOOD SUGAR OF 169, 2UNIT OF HUMULIN GIVEN PER S/S. PT ASKING FOR A CREAM THAT SHE CAN PUT ON HER LT SHOULDER TO RELIEVE PAIN AND ALSO WANTS SOMETHING FOR HER THROAT, BECAUSE IT'S SORE.
[2018-06-09 13:35] VITALS: BP 127/84
[2018-06-09] MEDS ORDERED: IPRAT-ALBUT 0.5-3 ML INH (15:36)
[2018-06-09] MEDS ORDERED: LEVAQUIN750 MG PO (15:36)
[2018-06-09] MEDS ORDERED: PREDNISONE10 MG PO (15:43)
[2018-06-09] MEDS ORDERED: FLORAJEN3 CAPS460 MG PO (15:43)
--- NOTE | 2018-06-09 18:10 | NUR ---
PROVIDED VERBAL AND WRITTEN DISCHARGE TEACHING TO PT AND DAUGHTER, BOTH VERBALIZED UNDERSTANDING REGARDING TEACHING. PT LEFT UNIT VIA WHEELCHAIR, WITH ALL BELONGINGS, ACCOMPANIED BY DAUGHTER, NAD NOTED.
--- NOTE | 2018-06-09 21:32 | MORECARE ---
CASE MANAGEMENT DISCHARGE SUMMARY PATIENT: HÉCTOR SANTIZO UNIT: [id number] ADM DATE: 06/06/18 AGE: 63 : 55 SEX: F ROOM/BED: D.4344 AUTHOR: TRUDYDOC PHYSICIAN: REFERRING PHYSICIAN: BRAD ARMSTRONG MD DATE OF SERVICE: 06/09/18 Discharge Plan Patient Name: HÉCTOR SANTIZO Facility: [facility]:[place] : 1955 Planned Disposition: Home Anticipated Discharge Date: 06/09/18 Discharge Date: 06/09/2018 Expected LOS: 3 Initial Reviewer: [id number] Initial Review Date: 06/06/2018 Generated: 06/09/18 10:32 pm Comments DCP- Discharge Planning Updated by [email or web address]: Porter Rodriguez on 06/08/18 11:[address] Patient Name: HÉCTOR SANTIZO Admission Status: ER Accout number: [id number] Admission Date: 06-06-2018 : 1955 Admission Diagnosis: Attending: BRAD ARMSTRONG Current LOS: 2 Anticipated DC Date: 06-09-2018 Planned Disposition: Home Primary Insurance: [employer] Discharge Planning Comments: CM SPOKE TO DR. LOPEZ WHO ASKED CM TO GET EVERYTHING ARRANGED FOR PT TO DISCHARGE HOME SOON. PT MAY NEED NEBULIZER PER DR. LOPEZ. CM MET WITH PT IN ROOM TO DISCUSS DISCHARGE PLANNING AND NEEDS. PT REPORTS LIVING AT HOME INDEPENDENLY WITH HER ADULT DAUGHTER WHO ASSISTS WITH ARRANGING PT'S MEDICATIONS. PT HAS BEDSIDE COMMODE, HOME AND PORTABLE OXYGEN, TRILOGY MACHINE WELL A VERY OLD NEBULIZER THAT PT REPORTS TO BE WORKING BUT SHE IS AFRAID IT COULD QUIT AT ANY TIME. PT'S MEDICAL EQUIPMENT PROVIDER IS [facility], PT IS NOT SURE WHICH OFFICE IT IS. PT HAS NO OUTSIDE SERVICES ASSISTING IN THE HOME. CM DISCUSSED AVAILABILITY OF HOME HEALTH, REHAB SERVICES AND MEDICAL EQUIPMENT. PT DENIES DISCHARGE NEEDS OTHER THAN NEEDING A NEW NEBULIZER. PT REPORTS HER DAUGHTER WILL PICK HER UP FOR DISCHARGE HOME. IMPORTANT MESSAGE FROM MEDICARE PROVIDED AND EXPLAINED. PROVIDER LISTING FOR MEDICAL EQUIPMENT PROVIDED, PT SIGNED CHOICE FOR [facility]. CM CALLED [facility] IN [facility], , , SPOKE TO STACI WHO TOOK NEBULIZER ORDER. CM FAXED NEBULIZER ORDER TO [facility] AT [phone]. [facility] TO ARRANGE NEBULIZER FOR HOME DELIVERY AFTER PT ARRIVES HOME. PT NOTIFIED WHO DENIES FURTHER DISCHARGE NEEDS. CM TO FOLLOW AND ASSIST IF NEEDED. Lithographic Camera Operator: Porter Rodriguez DCPIA - Discharge Planning Initial Assessment Updated by [id number]: Porter Rodriguez on 06/08/18 12:17 pm * Is the patient Alert and Oriented? Yes * How many steps to enter\exit or inside your home? NONE * PCP DR. GRECO * Pharmacy [facility] IN [place] * Preadmission Environment Home with Family * ADLs Partial Dependent * Partial ADLs (Assistance needed) Medication Management * Equipment Bedside Commode Nebulizer Other Oxygen * Other Equipment HOME AND PORTABLE OXYGEN TRILOGY MACHINE [facility], MEDICAL EQUIPMENT PROVIDER * List name and contact numbers for known caregivers / representatives who currently or will assist patient after discharge: ABDIAS NAVARRO, DTR, [phone] ORAL GAY, DTR, * Verbal permission to speak to the caregivers and representatives has been obtained from the patient. N/A * Community resources currently utilized None * Please name any agencies selected above. NONE * Additional services required to return to the preadmission environment? No * Can the patient safely return to the preadmission environment? Yes * Has this patient been hospitalized within the prior 30 days at any hospital? Yes Coverage Notice Reviewer: [id number] Funmi Rodriguez Notice Issued Date-Time: 06/08/2018 10:50 Notice Type: IM Discharge Notice Notice Delivered To: Patient Relationship to Patient: English Language Learner Teacher Name: Delivery Method: HAND - Hand Delivered Evie Days: Prior Verbal Notification: Recipient Understood Notice: Yes Recipient Signature: Yes Med Rec Note Co-signed by Attending: Coverage Notice Comment: Reviewer: [id number] Funmi Rodriguez Notice Issued Date-Time: 06/08/2018 10:50 Notice Type: Patient Choice Letter Notice Delivered To: Patient Relationship to Patient: English Language Learner Teacher Name: Delivery Method: HAND - Hand Delivered Evie Days: Prior Verbal Notification: Recipient Understood Notice: Yes Recipient Signature: Yes Med Rec Note Co-signed by Attending: Coverage Notice Comment: [facility] C[facility] DP export: 06/08/18 4:00 p Patient Name: HÉCTOR SANTIZO Page 60911 at 2132 All edits/amendments must be made on the electronic document DICTATION DATE: 06/09/182131 EDGE BANDER HAND: ANTHONY 06/09/182131 RPT#: [id number] DC DATE:06/09/18 STATUS: DIS IN [facility] [address] [place] [address] END OF REPORT
--- NOTE | 2018-06-09 21:39 | MORECARE ---
CASE MANAGEMENT DISCHARGE SUMMARY PATIENT: HÉCTOR SANTIZO UNIT: [id number] ADM DATE: 06/06/18 AGE: 63 : 55 SEX: F ROOM/BED: D.8861 AUTHOR: TRUDYDOC PHYSICIAN: REFERRING PHYSICIAN: BRAD ARMSTRONG MD DATE OF SERVICE: 06/09/18 Discharge Plan Patient Name: HÉCTOR SANTIZO Facility: [facility]:[place] : 1955 Planned Disposition: Home Anticipated Discharge Date: 06/09/18 Discharge Date: 06/09/2018 Expected LOS: 3 Initial Reviewer: [email or web address] Initial Review Date: 06/06/2018 Generated: 06/09/18 10:39 pm Comments DCP- Discharge Planning Updated by [id number]: Loren Gordillo on 06/09/18 8:[address] LATE ENTRY TC TO [facility] IN [facility]. RECEIVED CALL BACK FROM DIA[facility]. ADVISED PATIENT WAS BEING DISCHARGE TO HOME. THE PATIENT IS TO CALL [facility] WHEN SHE REACHES HOME AND [facility] HAS NEBULIZER TO DELIVER TO HER HOUSE. CM ALSO PROVIDED PT'S CONTACT PHONE NUMBER TO [facility]. CM TOLD PATIENT TO CALL [facility] WHEN SHE ARRIVES HOME. THE CONTACT PHONE NUMBER IS ON HER DISCHARGE PAPERWORK. HER DAUGHTER IS PROVIDING TRANSPORTATION TO HOME. DCP- Discharge Planning Updated by [id number]: Porter Rodriguez on 06/08/18 11:[address] Patient Name: HÉCTOR SANTIZO Admission Status: ER Accout number: [id number] Admission Date: 06-06-2018 : 1955 Admission Diagnosis: Attending: BRAD ARMSTRONG Current LOS: 2 Anticipated DC Date: 06-09-2018 Planned Disposition: Home Primary Insurance: [employer] Discharge Planning Comments: CM SPOKE TO DR. LOPEZ WHO ASKED CM TO GET EVERYTHING ARRANGED FOR PT TO DISCHARGE HOME SOON. PT MAY NEED NEBULIZER PER DR. LOPEZ. CM MET WITH PT IN ROOM TO DISCUSS DISCHARGE PLANNING AND NEEDS. PT REPORTS LIVING AT HOME INDEPENDENLY WITH HER ADULT DAUGHTER WHO ASSISTS WITH ARRANGING PT'S MEDICATIONS. PT HAS BEDSIDE COMMODE, HOME AND PORTABLE OXYGEN, TRILOGY MACHINE WELL A VERY OLD NEBULIZER THAT PT REPORTS TO BE WORKING BUT SHE IS AFRAID IT COULD QUIT AT ANY TIME. PT'S MEDICAL EQUIPMENT PROVIDER IS [facility], PT IS NOT SURE WHICH OFFICE IT IS. PT HAS NO OUTSIDE SERVICES ASSISTING IN THE HOME. CM DISCUSSED AVAILABILITY OF HOME HEALTH, REHAB SERVICES AND MEDICAL EQUIPMENT. PT DENIES DISCHARGE NEEDS OTHER THAN NEEDING A NEW NEBULIZER. PT REPORTS HER DAUGHTER WILL PICK HER UP FOR DISCHARGE HOME. IMPORTANT MESSAGE FROM MED[employer] PROVIDED AND EXPLAINED. PROVIDER LISTING FOR MEDICAL EQUIPMENT PROVIDED, PT SIGNED CHOICE FOR [facility]. CM CALLED [facility] IN [facility], , , SPOKE TO STACI WHO TOOK NEBULIZER ORDER. CM [facility] AT [phone]. [facility] TO ARRANGE NEBULIZER FOR HOME DELIVERY AFTER PT ARRIVES HOME. PT NOTIFIED WHO DENIES FURTHER DISCHARGE NEEDS. CM TO FOLLOW AND ASSIST IF NEEDED. Repair Service Dispatcher: Porter Rodriguez [facility] - Discharge Planning Initial Assessment Updated by [email or web address]: Porter Rodriguez on 06/08/18 12:17 pm * Is the patient Alert and Oriented? Yes * How many steps to enter\exit or inside your home? NONE * PCP DR. GRECO * Pharmacy [facility] IN [place] * Preadmission Environment Home with Family * ADLs Partial Dependent * Partial ADLs (Assistance needed) Medication Management * Equipment Bedside Commode Nebulizer Other Oxygen * Other Equipment HOME AND PORTABLE OXYGEN TRILOGY MACHINE [facility], MEDICAL EQUIPMENT PROVIDER * List name and contact numbers for known caregivers / representatives who currently or will assist patient after discharge: ABDIAS NAVARRO, DTR, [phone] ORAL GAY, DTR, * Verbal permission to speak to the caregivers and representatives has been obtained from the patient. N/A * Community resources currently utilized None * Please name any agencies selected above. NONE * Additional services required to return to the preadmission environment? No * Can the patient safely return to the preadmission environment? Yes * Has this patient been hospitalized within the prior 30 days at any hospital? Yes Coverage Notice Reviewer: [id number] - Porter Rodriguez Notice Issued Date-Time: 06/08/2018 10:50 Notice Type: IM Discharge Notice Notice Delivered To: Patient Relationship to Patient: Land Leasing Information Clerk Name: Delivery Method: HAND - Hand Delivered Evie Days: Prior Verbal Notification: Recipient Understood Notice: Yes Recipient Signature: Yes Med Rec Note Co-signed by Attending: Coverage Notice Comment: Reviewer: [id number] - Porter Rodriguez Notice Issued Date-Time: 06/08/2018 10:50 Notice Type: Patient Choice Letter Notice Delivered To: Patient Relationship to Patient: Land Leasing Information Clerk Name: Delivery Method: HAND - Hand Delivered Evie Days: Prior Verbal Notification: Recipient Understood Notice: Yes Recipient Signature: Yes Med Rec Note Co-signed by Attending: Coverage Notice Comment: SAJAN Guerrero DP export: 06/09/18 8:32 p Patient Name: HÉCTOR SANTIZO Page [id number] at 213 All edits/amendments must be made on the electronic document DICTATION DATE: 06/09/182138 ACTIVITIES CONCIERGE: ANTHONY 06/09/182138 RPT#: [id number] DC DATE:06/09/18 STATUS: DIS IN [facility] [address] [place] [address] END OF REPORT
--- NOTE | 2018-06-10 10:39 | EC ---
PATIENT:HÉCTOR SANTIZO DATE OF SERVICE: 06/06/18 SEX: F MEDICAL RECORD: [id number] DATE OF : [birth year] LOCATION:D.M2 D.210 AGE OF PATIENT: 63 ADMISSION DATE: 06/06/18 REFERRING PHYSICIAN: INTERPRETING PHYSICIAN: AVIVA LIGHT MD ECHOCARDIOGRAM REPORT ECHO CHARGES 4 ECHO COMPLETE Date: 06/07/18 CLINICAL DIAGNOSIS: DYSPNEA/A-FIB/CHF ECHOCARDIOGRAPHIC MEASUREMENTS (adult normal given) AC root (d.<3.7cm) 4.0 cm LV Septum d (<1.2 cm> 1.8 cm Valve Excursion 1.9 cm LV Septum (systole) 2.5 cm Left Atria (s.<4.0cm> 4.5 cm LVPW d(<1.2cm) 1.5 cm RV (d.<2.3cm) 2.9 cm LVPW (sytole) 2.0 cm LV diastole(<5.6CM) 4.8 cm MV E-F(>70mm/sec) cm LV systole 2.6 cm LVOT Diameter 1.9 cm MV exc.(>10mm) cm Est.ejection fraction (50-75%) % DOPPLER: LVIT cm/sec A cm/sec E 90.0 cm/sec LA cm/sec RVSP 37.0 mmHg LVOT 101 cm/sec AOP1/2T m/s Asc. Ao 128 cm/sec RVOT 49.0 cm/sec RA cm/sec PA 111 cm/sec AV Gradient Peak 6.6 mmHg AV Mean 3.0 mmHg AV Area 2.6 cm MV Gradient Peak 4.0 mmHg MV Mean 1.6 mmHg MV Area cm COMMENTS: Job Counselor: 1 RITA RICARDOOE Tracer Clerk: 3 Dr. Lucero TAPE# PACS Pericardial Effusion N DATE OF SERVICE: Adequate 2-D, color-flow and spectral Doppler, and M-mode. No LVH. LV internal dimensions are normal. LV is mildly globally hypo with mildly reduced EF. Estimated EF is 40% to 45%. Aortic valve sclerosis without stenosis by Doppler interrogation. Left atrium is dilated at 4.5 cm. Mitral valve shows no prolapse. Mild MR. Right-sided chambers are grossly normal. Moderate TR by color-flow imaging. ECHOCARDIOGRAM REPORT [id number] HÉCTOR SANTIZO TRANSINT:[id number] Voice Confirmation ID: [id number] DOCUMENT ID: [id number] AVIVA LIGHT MD at 1039 CC: [id number] DICTATION DATE: 06/07/18 145 DRAFTER CONSTRUCTION: 06/07/18 193 DIS IN 06/09/18 [facility] [address] [place] [id number]
--- NOTE | 2018-06-11 08:06 | MORECARE ---
CASE MANAGEMENT DISCHARGE SUMMARY PATIENT: HÉCTOR SANTIZO UNIT: [id number] ADM DATE: 06/06/18 AGE: 63 : 55 SEX: F ROOM/BED: D.1103 AUTHOR: TRUDYDOC PHYSICIAN: REFERRING PHYSICIAN: BRAD ARMSTRONG MD DATE OF SERVICE: 06/11/18 Discharge Plan Patient Name: HÉCTOR SANTIZO Facility: [facility]:[place] : 1955 Planned Disposition: Home Anticipated Discharge Date: 06/09/18 Discharge Date: 06/09/2018 Expected LOS: 3 Initial Reviewer: [id number] Initial Review Date: 06/06/2018 Generated: 06/11/18 9:05 am Comments DCP- Discharge Planning Updated by [id number]: Loren Gordillo on 06/09/18 8:[address] LATE ENTRY TC TO [facility] IN [facility]. RECEIVED CALL BACK FROM DIAZ. ADVISED PATIENT WAS BEING DISCHARGE TO HOME. THE PATIENT IS TO CALL [facility] WHEN SHE REACHES HOME AND [facility] HAS NEBULIZER TO DELIVER TO HER HOUSE. CM ALSO PROVIDED PT'S CONTACT PHONE NUMBER TO [facility]. CM TOLD PATIENT TO CALL [facility] WHEN SHE ARRIVES HOME. THE CONTACT PHONE NUMBER IS ON HER DISCHARGE PAPERWORK. HER DAUGHTER IS PROVIDING TRANSPORTATION TO HOME. DCP- Discharge Planning Updated by [email or web address]: Porter Rodriguez on 06/08/18 11:[address] Patient Name: HÉCTOR SANITZO Admission Status: ER Accout number: [id number] Admission Date: 06-06-2018 : 1955 Admission Diagnosis: Attending: BRAD ARMSTRONG Current LOS: 2 Anticipated DC Date: 06-09-2018 Planned Disposition: Home Primary Insurance: [facility] Discharge Planning Comments: CM SPOKE TO DR. LOPEZ WHO ASKED CM TO GET EVERYTHING ARRANGED FOR PT TO DISCHARGE HOME SOON. PT MAY NEED NEBULIZER PER DR. LOPEZ. CM MET WITH PT IN ROOM TO DISCUSS DISCHARGE PLANNING AND NEEDS. PT REPORTS LIVING AT HOME INDEPENDENLY WITH HER ADULT DAUGHTER WHO ASSISTS WITH ARRANGING PT'S MEDICATIONS. PT HAS BEDSIDE COMMODE, HOME AND PORTABLE OXYGEN, TRILOGY MACHINE WELL A VERY OLD NEBULIZER THAT PT REPORTS TO BE WORKING BUT SHE IS AFRAID IT COULD QUIT AT ANY TIME. PT'S MEDICAL EQUIPMENT PROVIDER IS [facility], PT IS NOT SURE WHICH OFFICE IT IS. PT HAS NO OUTSIDE SERVICES ASSISTING IN THE HOME. CM DISCUSSED AVAILABILITY OF HOME HEALTH, REHAB SERVICES AND MEDICAL EQUIPMENT. PT DENIES DISCHARGE NEEDS OTHER THAN NEEDING A NEW NEBULIZER. PT REPORTS HER DAUGHTER WILL PICK HER UP FOR DISCHARGE HOME. IMPORTANT MESSAGE FROM [employer] PROVIDED AND EXPLAINED. PROVIDER LISTING FOR MEDICAL EQUIPMENT PROVIDED, PT SIGNED CHOICE FOR [facility]. CM CALLED [facility] IN [facility], , , SPOKE TO STACI WHO TOOK NEBULIZER ORDER. CM [facility]ED [facility]BULIZER [facility] AT [phone]. [facility] TO ARRANGE NEBULIZER FOR HOME DELIVERY AFTER PT ARRIVES HOME. PT NOTIFIED WHO DENIES FURTHER DISCHARGE NEEDS. CM TO FOLLOW AND ASSIST IF NEEDED. Rifle Case Repairer: Porter Rodriguez [facility]charge Planning Initial Assessment Updated by [id number]: Porter Rodriguez on 06/08/18 12:17 pm * Is the patient Alert and Oriented? Yes * How many steps to enter\exit or inside your home? NONE * PCP DR. GRECO * Pharmacy [facility] IN [place] * Preadmission Environment Home with Family * ADLs Partial Dependent * Partial ADLs (Assistance needed) Medication Management * Equipment Bedside Commode Nebulizer Other Oxygen * Other Equipment HOME AND PORTABLE OXYGEN TRILOGY MACHINE [facility], MEDICAL EQUIPMENT PROVIDER * List name and contact numbers for known caregivers / representatives who currently or will assist patient after discharge: ABDIAS NAVARRO, DTR, [phone] ORAL GAY, DTR, * Verbal permission to speak to the caregivers and representatives has been obtained from the patient. N/A * Community resources currently utilized None * Please name any agencies selected above. NONE * Additional services required to return to the preadmission environment? No * Can the patient safely return to the preadmission environment? Yes * Has this patient been hospitalized within the prior 30 days at any hospital? Yes Coverage Notice Reviewer: [id number] - Porter Rodriguez Notice Issued Date-Time: 06/08/2018 10:50 Notice Type: IM Discharge Notice Notice Delivered To: Patient Relationship to Patient: Stretch Box Tender Name: Delivery Method: HAND - Hand Delivered Evie Days: Prior Verbal Notification: Recipient Understood Notice: Yes Recipient Signature: Yes Med Rec Note Co-signed by Attending: Coverage Notice Comment: Reviewer: [id number] - Porter Rdoriguez Notice Issued Date-Time: 06/08/2018 10:50 Notice Type: Patient Choice Letter Notice Delivered To: Patient Relationship to Patient: Stretch Box Tender Name: Delivery Method: HAND - Hand Delivered Evie Days: Prior Verbal Notification: Recipient Understood Notice: Yes Recipient Signature: Yes Med Rec Note Co-signed by Attending: Coverage Notice Comment: SAJAN Guerrero DP export: 06/09/18 8:39 p Patient Name: HÉCTOR SANTIZO Page [phone] at 0806 All edits/amendments must be made on the electronic document DICTATION DATE: 06/11/18804 INDUSTRIAL NURSE: ANTHONY 06/11/18804 RPT#: [id number] DC DATE:06/09/18 STATUS: DIS IN [facility] [address] [place] [address] END OF REPORT
== END 2018-06-09 18:11 | disposition home or self-care (01) | DRG 291 ==
LOC: D.ER 16:13 → D.EDHOLD 18:18 → D.M2 18:18
PROVIDERS: Emergency Medicine; Family Medicine; ADMIT Emergency Medicine; ATTEND Emergency Medicine
DX: I11.0 Hypertensive heart disease with heart failure (principal); I50.21 Acute systolic (congestive) heart failure; J96.21 Acute and chronic respiratory failure with hypoxia; J18.9 Pneumonia, unspecified organism; Z68.41 Body mass index [BMI] 40.0-44.9, adult; J44.0 Chronic obstructive pulmonary disease with (acute) lower respiratory infection; J44.1 Chronic obstructive pulmonary disease with (acute) exacerbation; E11.65 Type 2 diabetes mellitus with hyperglycemia; G40.909 Epilepsy, unspecified, not intractable, without status epilepticus; I48.91 Unspecified atrial fibrillation; E66.01 Morbid (severe) obesity due to excess calories; K43.9 Ventral hernia without obstruction or gangrene